=== PATIENT | female | born 1960 | race Caucasian/White ===

== ENCOUNTER → 2023-04-25 | Outpatient (CLI) | payer BC, SELFPAY ==
--- NOTE | 2023-04-25 16:33 | MRI_ITS ---
EXAM: MR LUMBAR SPINE WITHOUT INTRAVENOUS CONTRAST CLINICAL INDICATION: pain TECHNIQUE: Multiplanar and multisequence MR images of the lumbar spine without intravenous contrast. COMPARISON: X-ray 03/20/2023. FINDINGS: VERTEBRAE: Unremarkable. Vertebral body heights are preserved. Normal vertebral bodies and posterior elements. Normal alignment. No spondylolisthesis. There is preservation of the normal lumbar lordosis. SPINAL CORD: Unremarkable. Normal position and signal intensity of the conus medullaris. SOFT TISSUES: Small left renal cyst. DISCS/SPINAL CANAL/NEURAL FORAMINA: T12-L1: Disc dehydration. Mild, noncompressive spondylotic bar. Small, noncompressive right inferior foraminal disc protrusion. No canal stenosis. L1-2: Disc dehydration. Small, noncompressive central disc protrusion. No canal stenosis. Mild facet hypertrophy. Mild foraminal encroachment due to spurring. L2-3: Disc dehydration. Mild spondylotic bar causing minimal effacement of the ventral thecal sac and mild canal stenosis. Mild facet and ligamentous hypertrophy are contributory. Mild foraminal encroachment due to spurring. L3-4: Disc dehydration. Mild disc space narrowing. Mild canal stenosis due to mild spondylotic bar, moderate facet and ligamentous hypertrophy. Mild foraminal encroachment on the right due to spurring. L4-5: Disc dehydration and mild disc space narrowing. 5 mm anterolisthesis. No spondylolysis. Small, central disc extrusion with 6 mm superior migration. Moderate canal stenosis due to anterolisthesis, marked facet and ligamentous hypertrophy. Mild foraminal encroachment due to anterolisthesis. L5-S1: Normal disc height and morphology. Normal bilateral facet joints. Normal central canal. Normal bilateral lateral recesses. Normal intervertebral neural foramina. MRI/Spine Lumbar (Routine) IMPRESSION: Small L4-5 disc extrusion. Moderate L4-5 canal stenosis. Mild canal stenosis at L2-3 and L3-4. Noncompressive T12-L1 disc protrusion. Electronically Signed: Teresa Todd MD at 23:05 EDT Reading Location ID and State: [id number] / Tel , Service support ,
== END | disposition home or self-care (01) ==
LOC: MRI 16:06
PROVIDERS: PCP Family Medicine; Visit Provider Orthopaedic Surgery
DX: M43.10 Spondylolisthesis, site unspecified (principal)
CPT/HCPCS: 72148

== ENCOUNTER 2024-07-16 10:56 | Outpatient (CLI) | payer MEDICARE, OTHER, SELFPAY | END 2024-07-16 23:59 | disposition home or self-care (01) | LOC: BIMLAB 10:58 | PROVIDERS: PCP Internal Medicine; Referring Provider Internal Medicine; Visit Provider Internal Medicine | DX: Z80.0 Family history of malignant neoplasm of digestive organs (principal) | CPT/HCPCS: 36415 ==

== ENCOUNTER 2025-01-28 08:12 | Outpatient (CLI) | payer MEDICARE, OTHER, SELFPAY ==
[2025-01-29 18:08] LABS: Immunoglobulin A 342 mg/dL (87-352)
[2025-02-01 22:07] LABS: Egg, Whole <0.10 kU/L (Class 0); Mussels <0.10 kU/L (Class 0)
== END 2025-01-28 23:59 | disposition home or self-care (01) ==
LOC: LAB 08:15
PROVIDERS: Student in an Organized Health Care Education/Training Program; PCP Internal Medicine; Referring Provider Internal Medicine Gastroenterology; Visit Provider Internal Medicine Gastroenterology
DX: R19.5 Other fecal abnormalities (principal)
CPT/HCPCS: 36415; 82784; 83516; 86003; 86005; 86255

== ENCOUNTER → 2025-01-29 | Outpatient (CLI) | payer MEDICARE, OTHER, SELFPAY ==
[2025-02-01 16:09] LABS: Giardia Lamblia, Stool EIA Negative (Negative); Pancreatic Elastase, Fecal > 800 (>200)
[2025-02-02 08:09] LABS: Calprotectin, Stool 16 ug/g (0-120)
== END | disposition home or self-care (01) ==
LOC: LABSPEC 14:19
PROVIDERS: PCP Internal Medicine; Referring Provider Student in an Organized Health Care Education/Training Program; Visit Provider Student in an Organized Health Care Education/Training Program
DX: R19.5 Other fecal abnormalities (principal); K58.9 Irritable bowel syndrome, unspecified
CPT/HCPCS: 82653; 83993; 87177; 87209; 87329; 87493

== ENCOUNTER 2025-03-04 07:56 | Outpatient (CLI) | payer MEDICARE, OTHER, SELFPAY ==
[2025-03-08 16:08] LABS: HPV APTIMA, High Risk Negative (Negative)
== END 2025-03-04 23:59 | disposition home or self-care (01) ==
PROVIDERS: Nurse Practitioner Family; PCP Internal Medicine; Referring Provider Student in an Organized Health Care Education/Training Program; Visit Provider Student in an Organized Health Care Education/Training Program
DX: Z12.4 Encounter for screening for malignant neoplasm of cervix (principal); Z78.0 Asymptomatic menopausal state
CPT/HCPCS: 36415; 86003; 87624; 88175; G0145

== ENCOUNTER → 2025-03-09 | Outpatient (CLI) | payer MEDICARE, OTHER, SELFPAY ==
--- NOTE | 2025-03-09 12:30 | BI_ITS ---
EXAM: SCRN MAMM (CAD)W/LUANA BILAT DATE: 03/09/2025 CLINICAL HISTORY: F, Age 64 y/o , SCREEN FOR BREAST CANCER Grandmother with breast cancer. Prior bilateral breast reduction surgery. TECHNIQUE: Procedure Code: [id number] Modality: MG Procedure: SCRN MAMM (CAD)W/LUANA BILAT COMPARISON: Prior exam(s) dated March 02, 2024.. FINDINGS: TISSUE DENSITY: The breasts are heterogeneously dense, which may obscure small masses. Bilateral Breast Mammographic Findings: No significant masses, calcifications or other abnormalities are identified. Stable 3 cm by 1.7 cm fat containing nodule in the retroareolar region of the right areola. There is also evidence of a partially calcified 1.2 cm nodule in the medial retroareolar region of the left breast. Calcifications are seen most likely secondary to postsurgical changes. No suspicious masses, areas of developing architectural distortion, or suspicious calcifications. There has been no significant interval change. BI/SCRN MAMM (CAD)W/LUANA BILAT IMPRESSION: Stable bilateral screening mammogram. OVERALL FINAL ASSESSMENT BI-RADS 2: BENIGN RECOMMENDATION: Routine annual follow-up in 1 Year A letter with findings and recommendations will be mailed to the patient. Reading Location: [place] [id number]
== END | disposition home or self-care (01) ==
LOC: OPBI 12:03
PROVIDERS: PCP Internal Medicine; Referring Provider Nurse Practitioner Family; Visit Provider Nurse Practitioner Family
DX: Z12.31 Encounter for screening mammogram for malignant neoplasm of breast (principal); Z80.3 Family history of malignant neoplasm of breast
CPT/HCPCS: 77063; 77067

== ENCOUNTER → 2025-05-27 | Outpatient (CLI) | payer MEDICARE, OTHER, SELFPAY ==
--- NOTE | 2025-05-27 13:30 | BD_ITS ---
PROCEDURE: DEXA BONE DENSITY STUDY 05/27/2025 REASON FOR EXAM: SCREENING BONE DENSITY F, age 64 y/o . Postmenopausal. TECHNIQUE: Procedure Code: BDDBD Modality: DX Procedure: DEXA BONE DENSITY STUDY COMPARISON: None FINDINGS: BMD and T-SCORES Lumbar spine: 1.030 g/cm2, T-score -0.2 Levels: L1 through L4 Left femoral neck: 0.666 g/cm2, T-score -1.7 Femoral neck comparison data not recommended for monitoring change. Left total hip: 0.865 g/cm2, T-score -0.6 Right femoral neck: 0.622 g/cm2, T-score -2.0 Femoral neck comparison data not recommended for monitoring change. Right total hip: 0.830 g/cm2, T-score -0.9 The World Health Organization has defined the following categories based on bone density: Normal bone density: T-score equal to or greater than -1.0 Osteopenia: T-score between -1.0 and -2.5 Osteoporosis: T-score equal to or less than -2.5 FRAX (or Comparable) Fracture Risk Assessment: 10 Year Probability of Fracture: Major Osteoporotic Fracture: 32% Hip Fracture: 6.5% (Note: FRAX is not to be reported in setting of normal range bone density, osteoporosis on DEXA, known history of osteoporosis, prior osteoporotic hip or vertebral fracture, or for any patient undergoing pharmacological treatment for bone loss.) The National Osteoporosis Foundation (NOF) recommends pharmacological treatment for patients with a FRAX 10-year risk of 3% or higher for a hip fracture, or 20% or higher for a major osteoporotic fracture, to prevent osteoporosis and reduce fracture risk. The patient does meet the pharmacological treatment recommendations for prevention of osteoporosis. BD/Dexa Bone Density Study IMPRESSION: OSTEOPENIA. Recommend follow-up as clinically warranted. Reading Location: [place] [id number]
== END | disposition home or self-care (01) ==
LOC: OPBD 13:09
PROVIDERS: PCP Internal Medicine; Referring Provider Internal Medicine; Visit Provider Internal Medicine
DX: Z13.820 Encounter for screening for osteoporosis (principal); Z78.0 Asymptomatic menopausal state
CPT/HCPCS: 77080

== ENCOUNTER → 2025-05-31 | Outpatient (CLI) | payer MEDICARE, OTHER, SELFPAY ==
[2025-05-31 12:40] LABS: Vitamin D,25 Hydroxy 23.8 ng/mL (30-100)
== END | disposition home or self-care (01) ==
LOC: LAB 11:03
PROVIDERS: PCP Internal Medicine; Referring Provider Internal Medicine; Visit Provider Internal Medicine
DX: M85.80 Other specified disorders of bone density and structure, unspecified site (principal)
CPT/HCPCS: 36415; 82306